=== PATIENT | female | born 1995 | race Caucasian/White ===

== ENCOUNTER 2016-10-12 22:56 | Emergency (ER) | payer BC ==
[2016-10-12] MEDS ORDERED: ONDANSETRON HCL IV 4 MG/2 ML VIAL IV ONE (23:06)
[2016-10-12] MEDS ORDERED: 0.9 % SODIUM CHLORIDE 1,000 ML BAG IV ONE (23:06)
[2016-10-12] MEDS ORDERED: MORPHINE SULFATE 5 MG/ML PFS IVP ONE (23:07)
--- NOTE | 2016-10-12 23:12 | Emergency Department Record ---
History of Present Illness - General Chief Complaint: Abdominal Pain Stated Complaint: ABD PAIN Time Seen by Provider: 10/12/16 23:06 Source: Patient, Family Mode of Arrival: Ambulatory Limitations: No limitations - History of Present Illness Initial Comments: 21 yo female presents with left side pain that started about 1 hour prior to arrival. The pain is lateral to the level of the umbilicus. She has associated nausea. No fever. No lower pelvic pain or back pain. She did have a loose stool. No blood in the urine or stool. No history of prior similar pain. No history of renal stones or ovarian cysts. No history of abdominal surgery. MD Complaint: Abdominal pain, Flank pain Onset/Timin -: Hour(s) Location: LLQ Radiation: None Migration to: No migration Severity: Severe Consistency: Constant Improves With: Nothing Worsens With: Nothing Associated Symptoms: Diarrhea, Nausea - Related Data LMP (females 10-50): 1 month ago Home Medications Medication Instructions Recorded Confirmed Last Taken Norethindrone-Ethinyl Estrad 1 each PO DAILY 03/20/15 03/20/15 Unknown [Necon 1-35-28 Tablet] Previous Rx's Medication Instructions Recorded Sulfamethoxazole/Trimethoprim 1 tab PO BID #20 tab 03/20/15 [Bactrim DS] Hydrocodone/Acetaminophen [Shelburn 1 tab PO Q6H PRN #15 tab 10/13/16 5mg/325mg] Metronidazole [Flagyl] 500 mg PO BID #14 tablet 10/13/16 Tamsulosin HCl [Flomax] 0.4 mg PO DAILY #7 cap.er.24h 10/13/16 Allergies Allergy/AdvReac Type Severity Reaction Status Date / Time No Known Drug Allergies Allergy Verified 03/20/15 13:09 Travel Screening - Travel/Exposure Within Last 30 Days Have you traveled within the last 30 days?: No - Travel/Exposure Within Last Year Have you traveled outside the [place] in the last year?: No - Additonal Travel Details Have you been exposed to anyone with a communicable illness?: No - Travel Symptoms Symptom Screening: None Review of Systems Constitutional: Denies: Chills, Fever, Malaise, Weakness Eyes: Denies: Eye discharge, Photophobia, Vision change ENT: Denies: Congestion, Throat pain Respiratory: Denies: Cough, Dyspnea, Hemoptysis, Stridor, Wheezes Cardiovascular: Denies: Chest pain, Palpitations, Syncope Endocrine: Denies: Fatigue, Polydipsia, Polyuria Gastrointestinal: Reports: As per HPI, Abdominal pain, Diarrhea, Nausea, Vomiting. Denies: Constipation, Hematemesis, Hematochezia Genitourinary: Denies: Abnormal menses, Discharge, Dysuria, Hematuria, Urgency Musculoskeletal: Denies: Arthralgia, Back pain, Joint swelling, Myalgia, Neck pain Skin: Denies: Bruising, Change in color, Rash Neurological: Denies: Confusion, Headache Psychiatric: Denies: Anxiety Hematological/Lymphatic: Denies: Blood Clots, Easy bleeding, Easy bruising, Swollen glands Past Medical History - SOCIAL HISTORY Smoking Status: Never smoker Alcohol Use: Rare Drug Use: None - RESPIRATORY Hx Respiratory Disorders: No - CARDIOVASCULAR Hx Cardio Disorders: No - NEURO Hx Neuro Disorders: No - GI Hx GI Disorders: No - Hx Genitourinary Disorders: No - ENDOCRINE Hx Endocrine Disorders: No - MUSCULOSKELETAL Hx Musculoskeletal Disorders: No - PSYCH Hx Psych Problems: No - HEMATOLOGY/ONCOLOGY Hx Hematology/Oncology Disorders: No Family Medical History Any Significant Family History?: No Physical Exam - General General Appearance: Alert, Oriented x3, Cooperative, No acute distress Limitations: No limitations - Head Head exam: Normal inspection - Eye Eye exam: Normal appearance, PERRL. negative: Conjunctival injection, Periorbital swelling - ENT ENT exam: Normal exam, Mucous membranes moist Ear exam: Normal external inspection Nasal Exam: Normal inspection Mouth exam: Normal external inspection Teeth exam: Normal inspection Throat exam: Normal inspection - Neck Neck exam: Normal inspection, Full ROM. negative: Tenderness - Respiratory Respiratory exam: Normal lung sounds bilaterally. negative: Respiratory distress - Cardiovascular Cardiovascular Exam: Regular rate, Normal rhythm, Normal heart sounds - GI/Abdominal GI/Abdominal exam: Soft, Normal bowel sounds, Tenderness (tender lateral to the umbilical level, not tender lower or above that area. the pelvic area is not tender). negative: Distended, Guarding, Hernia, Mass, Rebound, Rigid - Rectal Rectal exam: Deferred - exam: Normal bimanual exam, Normal external exam, Normal speculum exam, Vaginal bleeding (very slight spotting). negative: Abnormal external exam, Adnexal mass (L), Adnexal mass (R), Adnexal tenderness (L), Adnexal tenderness ( R), Cervical discharge, cervical motion tenderness, Vaginal discharge, Vaginal erythema - Extremities Extremities exam: Normal inspection, Full ROM, Normal capillary refill. negative: Tenderness - Back Back exam: Reports: Normal inspection, Full ROM. Denies: CVA tenderness (R), CVA tenderness (L), Muscle spasm, Paraspinal tenderness, Rash noted, Tenderness , Vertebral tenderness - Neurological Neurological exam: Alert, Normal gait, Oriented X3, Reflexes normal - Psychiatric Psychiatric exam: Normal affect, Normal mood. negative: Agitated, Anxious - Skin Skin exam: Dry, Intact, Normal color, Warm Course Vital Signs 10/12/16 23:02 Temperature 98.2 F Pulse Rate 102 H Respiratory 20 Rate Blood Pressure 142/94 Pulse Ox 100 - Reevaluation(s) Reevaluation #1: No acute changes on the CBC or CMP excpet mild decrease in the Potassium. UA is pending. Her HCG is negative. 10/12/16 23:41 Reevaluation #2: Pelvic Examination completed No significant adnexal tenderness on the left 10/12/16 23:57 Reevaluation #3: Wet Prep with clue cells. 10/13/16 00:23 Reevaluation #4: CT scan demonstrates left hydronephrosis, and left hydroureter due to a 2.7mm renal at the UVJ. Bilateral NO stones largest 4.5mm 10/13/16 00:45 UA is negative for infection The patient's pain is well controlled I discussed renal stones and reasons to return to the ED Given her multiple stones and chance for future stones she will be given a referral to urology as an outpatient She will be given a strainer and specimen cup as well 10/13/16 01:05 Medical Decision Making - Lab Data Result diagrams: 10/12/16 23:10 10/12/16 23:10 Disposition Disposition: Discharge Clinical Impression: Renal colic on left side, Bacterial vaginosis Disposition: Home, Self-Care Condition: (1) Good Instructions: Renal Colic (ED), Bacterial Vaginosis (ED) Additional Instructions: Return to the ER immediately if you have fever, uncontrolled nausea or pain Follow up with the urologist regarding your stones Take the Flagyl twice daily for the bacterial vaginosis Strain your urine to look for a stone Prescriptions: Metronidazole [Flagyl] 500 mg PO BID #14 tablet Tamsulosin HCl [Flomax] 0.4 mg PO DAILY #7 cap.er.24h Hydrocodone/Acetaminophen [Shelburn 5mg/325mg] 1 tab PO Q6H PRN #15 tab PRN Reason: Pain - General Referrals: JAUN DE LOS SANTOS M.D. [MEDICAL DOCTOR] - [facility] [Provider Group] Forms: Patient Portal Access Time of Disposition: 01:07
[2016-10-12 23:18] LABS: BASO % 0.5 % (0-6); EOS % 3.7 % (0-6); GRAN % 53.7 % (47-80); HEMATOCRIT 41.5 % (35.0-47.0); HEMOGLOBIN 13.4 gm/dl (11.6-16.0); LYMPH % 35.6 % (16-45); MEAN CELL VOLUME 84.2 fl (81-97); MEAN CORPUSCULAR HEMOGLOBIN 27.2 pg (27-33); MEAN CORPUSCULAR HGB CONC 32.3 g/dl (32-36); MEAN PLATELET VOLUME 10.3 fl (7.4-10.4); MONO % 6.5 % (0-9); PLATELET COUNT 333 K/uL (130-400); RED BLOOD COUNT 4.93 M/uL (3.80-5.40); RED CELL DISTRIBUTION WIDTH 13.6 % (11.5-14.5); WHITE BLOOD COUNT W/O DIFF 7.5 K/uL (4.2-12.2)
[2016-10-12 23:29] LABS: ALB/GLOB RATIO 1.4 (1.1-1.8); ALBUMIN 4.5 gm/dL (3.5-5.0); ALKALINE PHOSPHATASE 68 U/L (38-126); ALT/SGPT 31 U/L (9-52); ANION GAP 11.6 (7-16); AST/SGOT 32 U/L (14-36); BILIRUBIN,TOTAL 0.73 mg/dL (0.2-1.3); BLOOD UREA NITROGEN 18 mg/dL (7-17); CARBON DIOXIDE 22.4 mmol/L (22-30); CREATININE 0.7 mg/dL (0.52-1.04); EST GLOMERULAR FILTRATION RATE > 60 ml/min; GLUCOSE,RANDOM 103 mg/dL (70-110); LIPASE 128 U/L (23-300); TOTAL PROTEIN 7.8 gm/dL (6.3-8.2)
[2016-10-12] MEDS ORDERED: KETOROLAC 30 MG/ML VIAL IVP ONE (23:42)
[2016-10-13] MEDS ORDERED: TAMSULOSIN HCL 0.4 MG CAP.ER.24H PO ONE (00:48)
[2016-10-13 00:57] LABS: URINE APPEARANCE CLEAR; URINE BILIRUBIN NEGATIVE (NEGATIVE); URINE BLOOD NEGATIVE (NEGATIVE); URINE COLOR YELLOW; URINE GLUCOSE (UA) NEGATIVE (NEGATIVE); URINE KETONE NEGATIVE (NEGATIVE); URINE LEUKOCYTE ESTERASE NEGATIVE (NEGATIVE); URINE NITRITE NEGATIVE (NEGATIVE); URINE PROTEIN NEGATIVE (NEGATIVE); URINE UROBILINOGEN 0.2 E.U./dL (0.20 - 1.00)
[2016-10-13] MEDS ORDERED: HYDROCODONE/APAP 7.5/325MG TABLET PO ONE (01:07)
[2016-10-14 16:35] LABS: GC SPECIMEN TYPE Vaginal
== END 2016-10-13 01:27 | disposition home or self-care (01) ==
LOC: ER 22:56
DX: N13.2 Hydronephrosis with renal and ureteral calculous obstruction (principal); N76.0 Acute vaginitis; R19.7 Diarrhea, unspecified; R11.0 Nausea
CPT/HCPCS: 99284 ×2; 96374; 96375; 96361; 83690; 85025; 80053; 81003; 84703; 74176; Q0111; J1885; J2405; J2270; 87210; J7030

== ENCOUNTER 2016-11-25 02:59 | Emergency (ER) | payer BC ==
[2016-11-25] MEDS ORDERED: 0.9 % SODIUM CHLORIDE 1,000 ML BAG IV ONE (03:14)
[2016-11-25] MEDS ORDERED: ONDANSETRON HCL IV 4 MG/2 ML VIAL IVP ONE (03:15)
--- NOTE | 2016-11-25 03:21 | Emergency Department Record ---
History of Present Illness - General Chief complaint: Flank Pain Stated complaint: FLANK PAIN Time Seen by Provider: 11/25/16 03:13 Source: Patient Mode of Arrival: Ambulatory Limitations: No limitations - History of Present Illness Initial comments: ptc/o r flank pain that feels like previous kidney stone for 5 hrs. pt has nausea. MD Complaint: Other Onset/Timin -: Minutes(s) Radiation: R flank Severity scale (1-10): 9 Quality: Stabbing Consistency: Constant, Getting worse Improves with: None Worsens with: None Patient : No Associated Symptoms: Dysuria - Related Data Allergies Allergy/AdvReac Type Severity Reaction Status Date / Time No Known Drug Allergies Allergy Verified 03/20/15 13:09 Travel Screening - Travel/Exposure Within Last 30 Days Have you traveled within the last 30 days?: No Review of Systems Reviewed: No additional complaints except as noted below Constitutional: Reports: As per HPI. Denies: Chills, Fever, Malaise, Night sweats, Weakness, Weight change Eyes: Reports: As per HPI. Denies: Eye discharge, Eye pain, Photophobia, Vision change ENT: Reports: As per HPI. Denies: Congestion, Dental pain, Ear pain, Epistaxis , Hearing loss, Throat pain Respiratory: Reports: As per HPI. Denies: Cough, Dyspnea, Hemoptysis, Stridor, Wheezes Cardiovascular: Reports: As per HPI. Denies: Arrhythmia, Chest pain, Dyspnea on exertion, Edema, Murmurs, Orthopnea, Palpitations, Paroxysmal nocturnal dyspnea, Rheumatic Fever, Syncope Endocrine: Reports: As per HPI. Denies: Fatigue, Heat or cold intolerance, Polydipsia, Polyuria Gastrointestinal: Reports: As per HPI. Denies: Abdominal pain, Constipation, Diarrhea, Hematemesis, Hematochezia, Melena, Nausea, Vomiting Genitourinary: Reports: As per HPI. Denies: Abnormal menses, Discharge, Dyspareunia, Dysuria, Frequency, Hematuria, Incontinence, Retention, Urgency Musculoskeletal: Reports: As per HPI. Denies: Arthralgia, Back pain, Gout, Joint swelling, Myalgia, Neck pain Skin: Reports: As per HPI. Denies: Bruising, Change in color, Change in hair/ nails, Lesions, Pruritus, Rash Neurological: Reports: As per HPI. Denies: Abnormal gait, Confusion, Headache, Numbness, Paresthesias, Seizure, Tingling, Tremors, Vertigo, Weakness Psychiatric: Reports: As per HPI. Denies: Anxiety, Auditory hallucinations, Depression, Homicidal thoughts, Suicidal thoughts, Visual hallucinations Hematological/Lymphatic: Reports: As per HPI. Denies: Anemia, Blood Clots, Easy bleeding, Easy bruising, Swollen glands Past Medical History - SOCIAL HISTORY Smoking Status: Never smoker Alcohol Use: None Drug Use: None - RESPIRATORY Hx Respiratory Disorders: No - CARDIOVASCULAR Hx Cardio Disorders: No - NEURO Hx Neuro Disorders: No - GI Hx GI Disorders: No - Hx Genitourinary Disorders: No - ENDOCRINE Hx Endocrine Disorders: No - MUSCULOSKELETAL Hx Musculoskeletal Disorders: No - PSYCH Hx Psych Problems: No - HEMATOLOGY/ONCOLOGY Hx Hematology/Oncology Disorders: No Family Medical History Any Significant Family History?: No Physical Exam - General General Appearance: Alert, Oriented x3, Cooperative, Mild distress - Head Head exam: Normal inspection - Eye Eye exam: Normal appearance, PERRL, EOMI Pupils: Normal accommodation - ENT ENT exam: Normal exam, Mucous membranes moist, Normal external ear exam, Normal orophraynx Ear exam: Normal external inspection. negative: External canal tenderness Nasal Exam: Normal inspection. negative: Discharge, Sinus tenderness Mouth exam: Normal external inspection, Tongue normal Teeth exam: Normal inspection. negative: Dental caries Throat exam: Normal inspection. negative: Tonsillar erythema, Tonsillar exudate - Neck Neck exam: Normal inspection, Full ROM. negative: Tenderness - Respiratory Respiratory exam: Normal lung sounds bilaterally. negative: Respiratory distress - Cardiovascular Cardiovascular Exam: Regular rate, Normal rhythm, Normal heart sounds - GI/Abdominal GI/Abdominal exam: Soft, Normal bowel sounds. negative: Tenderness - Rectal Rectal exam: Deferred - exam: Deferred - Extremities Extremities exam: Normal inspection, Full ROM, Normal capillary refill. negative: Tenderness - Back Back exam: Reports: Normal inspection, Full ROM. Denies: Muscle spasm, Rash noted, Tenderness - Neurological Neurological exam: Alert, CN II-XII intact, Normal gait, Oriented X3 - Psychiatric Psychiatric exam: Normal affect, Normal mood - Skin Skin exam: Dry, Intact, Normal color, Warm Course Vital Signs 11/25/16 03:03 Temperature 98 F Pulse Rate [ 77 Pulse Ox Probe] Respiratory 20 Rate Blood Pressure 137/90 [Left Arm] Pulse Ox 100 Medical Decision Making - Lab Data Result diagrams: 11/25/16 03:12 11/25/16 03:12 Disposition Disposition: Transfer Clinical Impression: Renal lithiasis, Pyelonephritis Disposition: Acute Care Hospital Transfer Transfer To: [facility] Reason For Transfer: needs urologist Accepting Physician: brandi newman Time Discussed w/Accepting Physician: 05:21 Forms: Patient Portal Access
[2016-11-25 03:23] LABS: BASO % 0.8 % (0-6); EOS % 2.2 % (0-6); GRAN % 48.3 % (47-80); HEMATOCRIT 42.2 % (35.0-47.0); HEMOGLOBIN 13.3 gm/dl (11.6-16.0); LYMPH % 41.4 % (16-45); MEAN CELL VOLUME 85.6 fl (81-97); MEAN CORPUSCULAR HGB CONC 31.5 g/dl (32-36); MONO % 7.3 % (0-9); PLATELET COUNT 429 K/uL (130-400); RED BLOOD COUNT 4.93 M/uL (3.80-5.40); RED CELL DISTRIBUTION WIDTH 13.7 % (11.5-14.5); WHITE BLOOD COUNT W/O DIFF 7.7 K/uL (4.2-12.2)
[2016-11-25 03:32] LABS: ANION GAP 11.9 (7-16); BLOOD UREA NITROGEN 9 mg/dL (7-17); CARBON DIOXIDE 23.1 mmol/L (22-30); CREATININE 0.7 mg/dL (0.52-1.04); EST GLOMERULAR FILTRATION RATE > 60 ml/min; GLUCOSE,RANDOM 90 mg/dL (70-110)
[2016-11-25 03:40] LABS: HCG,QUALITATIVE URINE NEGATIVE (NEGATIVE); URINE APPEARANCE CLEAR; URINE BILIRUBIN NEGATIVE (NEGATIVE); URINE BLOOD LARGE (NEGATIVE); URINE COLOR YELLOW; URINE GLUCOSE (UA) NEGATIVE (NEGATIVE); URINE KETONE NEGATIVE (NEGATIVE); URINE LEUKOCYTE ESTERASE LARGE (NEGATIVE); URINE NITRITE POSITIVE (NEGATIVE)
[2016-11-25] MEDS ORDERED: KETOROLAC 30 MG/ML VIAL IVP ONE (03:45)
[2016-11-25 03:47] LABS: URINE EPITHELIAL CELLS 21 - 35 (FEW)
[2016-11-25 03:48] LABS: URINE BACTERIA 4+; URINE MUCUS MODERATE
[2016-11-25 04:45] LABS: URINE APPEARANCE CLEAR; URINE BILIRUBIN NEGATIVE (NEGATIVE); URINE BLOOD LARGE (NEGATIVE); URINE COLOR YELLOW; URINE GLUCOSE (UA) NEGATIVE (NEGATIVE); URINE KETONE NEGATIVE (NEGATIVE); URINE LEUKOCYTE ESTERASE MODERATE (NEGATIVE); URINE NITRITE NEGATIVE (NEGATIVE); URINE UROBILINOGEN 0.2 E.U./dL (0.20 - 1.00)
[2016-11-25 04:53] LABS: URINE BACTERIA 4+; URINE MUCUS MODERATE; URINE RBC 21 - 35 (NONE SEEN); URINE WBC 16 - 20 (0-2/hpf)
[2016-11-25] MEDS ORDERED: CIPROFLOXACIN LACTATE/D5W 400 MG/200 ML BAG IVPB ONE (04:59)
--- NOTE | 2016-11-25 09:36 | CT SCAN REPORT ---
EXAM: EMERGENCY CT OF THE ABDOMEN AND PELVIS WITHOUT CONTRAST HISTORY: RIGHT FLANK PAIN. TECHNIQUE: Axial CT scan of the abdomen and pelvis was performed without oral or IV contrast. A preliminary report was provided by [facility]. Comparison: CT of the abdomen and pelvis dated 10/13/16. FINDINGS: Tiny nonobstructing calculus lower pole right kidney, however, there is moderate hydronephrosis on the right and also hydroureter with the dilated right ureter followed down into the pelvis where it leads to an approximately 5 mm calculus at the right UVJ. This calculus appears to correspond to a calculus previously seen in the upper pole of the right kidney back on 10/13/16. Very tiny nonobstructing calculus in the left kidney. No hydronephrosis or hydroureter on the left today with the previously seen left sided hydronephrosis no longer present. The previously seen distal left ureteral calculus no longer evident. No actual bladder calculus evident today. No calcified gallstones are seen within the gallbladder. Evaluation of the bowel and viscera is very limited without oral or IV contrast. Given this limitation, no definite hepatic, splenic, adrenal, pancreatic, or renal mass identified. The appendix is not well seen without contrast, but no definite appendicitis evident. There are some mildly prominent mesenteric nodes in the right lower quadrant, these are nonspecific, but may simply be reactive in nature. The lung bases appear clear. No free intraperitoneal air or free intraperitoneal fluid evident. IMPRESSION: 1. APPEARANCE CONSISTENT WITH A DISTAL RIGHT URETERAL CALCULUS ABOUT 5 MM IN SIZE CAUSING A COMPONENT OF OBSTRUCTION ON THE RIGHT. 2. ADDITIONAL BILATERAL TINY CURRENTLY NONOBSTRUCTING INTRARENAL CALCULI. 3. SOME MILDLY PROMINENT MESENTERIC NODES IN THE RIGHT LOWER QUADRANT ARE NONSPECIFIC, BUT PRESUMABLY JUST REACTIVE IN NATURE. THE APPENDIX IS NOT WELL SEEN, BUT NO APPENDICITIS EVIDENT. JOB NUMBER: [id number] [facility]
== END 2016-11-25 05:35 | disposition short-term general hospital (02) ==
LOC: ER 02:59
DX: N13.6 Pyonephrosis (principal); R11.0 Nausea; R10.31 Right lower quadrant pain; R30.0 Dysuria; Z87.442 Personal history of urinary calculi
CPT/HCPCS: 99282; 96374; 96375; 99285; 85025; 80048; 81001; 81025; 74176; J0744; J1885; J2405; J7030

== ENCOUNTER 2018-11-09 20:37 | Emergency (ER) | payer BC ==
[2018-11-09] MEDS ORDERED: METOCLOPRAMIDE HCL 10 MG/2 ML VIAL IVP ONE (20:45)
[2018-11-09] MEDS ORDERED: 0.9 % SODIUM CHLORIDE 1000ML 1,000 ML IV SCH (20:45)
[2018-11-09] MEDS ORDERED: DIPHENHYDRAMINE HCL 50 MG/ML VIAL IVP ONE (20:45)
--- NOTE | 2018-11-09 20:49 | Emergency Department Record ---
History of Present Illness - General Chief Complaint: Headache Migraine Stated Complaint: PEÑA Time Seen by Provider: 11/09/18 20:45 Source: Patient Mode of Arrival: Ambulatory Limitations: No limitations - History of Present Illness Initial Comments: 23 yo female presents to ED for evaluation of a "migraine headache" that began 3 days ago, reports associated nausea and vomiting symptoms. Patient denies fever or neck stiffness symptoms, denies anticoagulation use. Patient reports that she is approximately 15 weeks , reports she is worried about becoming further dehydrated prompting visit to the ED this evening. MD Complaint: Headache Onset/Timin -: Days(s) Onset Description: Gradual Location: Diffuse Severity: Moderate Quality: Throbbing Consistency: Constant Improves With: Nothing Worsens With: None Associated Symptoms: Nausea, Vomiting - Related Data Home Medications Medication Instructions Recorded Confirmed Last Taken Pnv No.95/Ferrous Fum/Folic AC 1 each PO DAILY 11/09/18 11/09/18 Unknown [ Caplet] Allergies Allergy/AdvReac Type Severity Reaction Status Date / Time No Known Drug Allergies Allergy Verified 03/20/15 13:09 Review of Systems Constitutional: Denies: Chills, Fever, Malaise, Night sweats Eyes: Denies: Eye discharge, Eye pain ENT: Denies: Congestion, Ear pain, Epistaxis Respiratory: Denies: Cough, Dyspnea Cardiovascular: Denies: Chest pain, Dyspnea on exertion Endocrine: Denies: Fatigue, Heat or cold intolerance Gastrointestinal: Reports: Nausea, Vomiting. Denies: Abdominal pain Genitourinary: Denies: Incontinence, Retention Musculoskeletal: Denies: Arthralgia, Back pain Skin: Denies: Bruising, Change in color Neurological: Reports: Headache. Denies: Abnormal gait, Confusion, Seizure Psychiatric: Denies: Anxiety Hematological/Lymphatic: Denies: Anemia, Blood Clots Past Medical History - SOCIAL HISTORY Smoking Status: Never smoker Drug Use: None - RESPIRATORY Hx Respiratory Disorders: No - CARDIOVASCULAR Hx Cardio Disorders: No - NEURO Hx Neuro Disorders: No - GI Hx GI Disorders: No - Hx Genitourinary Disorders: No - ENDOCRINE Hx Endocrine Disorders: No - MUSCULOSKELETAL Hx Musculoskeletal Disorders: No - PSYCH Hx Psych Problems: No - HEMATOLOGY/ONCOLOGY Hx Hematology/Oncology Disorders: No Physical Exam - General General Appearance: Alert, Oriented x3, Cooperative, Mild distress Limitations: No limitations - Head Head exam: Atraumatic, Normocephalic, Normal inspection Head exam detail: negative: Abrasion, Contusion, Her's sign, General tenderness, Hematoma, Laceration - Eye Eye exam: Normal appearance. negative: Conjunctival injection, Periorbital swelling, Periorbital tenderness, Scleral icterus - ENT Ear exam: negative: Auricular hematoma, Auricular trauma Nasal Exam: negative: Active bleeding, Discharge, Dried blood, Foreign body Mouth exam: negative: Drooling, Laceration, Muffled voice, Tongue elevation - Neck Neck exam: Normal inspection. negative: Meningismus, Tenderness - Respiratory Respiratory exam: Normal lung sounds bilaterally. negative: Rales, Respiratory distress, Rhonchi, Stridor - Cardiovascular Cardiovascular Exam: Regular rate, Normal rhythm, Normal heart sounds - GI/Abdominal GI/Abdominal exam: Soft. negative: Rebound, Rigid, Tenderness - Rectal Rectal exam: Deferred - exam: Deferred - Extremities Extremities exam: Normal inspection. negative: Pedal edema, Tenderness - Back Back exam: Denies: CVA tenderness (R), CVA tenderness (L) - Neurological Neurological exam: Alert, Normal gait, Oriented X3 - Psychiatric Psychiatric exam: Normal affect, Normal mood - Skin Skin exam: Normal color. negative: Abrasion Type of lesion: negative: abrasion Course Vital Signs 11/09/18 20:43 Temperature 98.2 F Pulse Rate [ 87 Left] Respiratory 16 Rate Blood Pressure 126/91 [Left Arm] Pulse Ox 99 - Reevaluation(s) Reevaluation #1: 11/09/18 21:45 Patient was reassessed, reports that her headache symptoms are improved to 2/10. Patient appears stable for discharge at this time. Disposition Disposition: Discharge Clinical Impression: Acute headache Qualifiers: Headache type: unspecified Intractability: not intractable Qualified Code(s): R51 - Headache Disposition: Home, Self-Care Condition: (2) Stable Instructions: Acute Headache (ED) Additional Instructions: Return to ED if your symptoms worsen or if you have any concerns. Follow-up with your family doctor in 3-5 days as directed. Forms: Patient Portal Access Time of Disposition: 21:45 Quality - Quality Measures Quality Measures: N/A - Blood Pressure Screening Does Patient Have Any of the Following: No Blood Pressure Classification: Hypertensive Reading Systolic Measurement: 126 Diastolic Measurement: 91 Screening for High Blood Pressure: < First Hypertensive BP, F/U Documented > [G8950] First Hypertensive Follow-up Interventions: Referral to alternative/primary care provider.
== END 2018-11-09 22:01 | disposition home or self-care (01) ==
LOC: ER 20:37
DX: R51 Headache (principal); R11.2 Nausea with vomiting, unspecified; Z33.1 Pregnant state, incidental
CPT/HCPCS: 96361; 96374; 96375; 99284; J1200; J2765; J7030

== ENCOUNTER 2018-12-03 18:05 | Emergency (ER) | payer BC ==
--- NOTE | 2018-12-03 18:17 | Emergency Department Record ---
History of Present Illness - General Chief Complaint: Chest Pain Stated Complaint: LT ARM CHEST PAIN Time Seen by Provider: 12/03/18 18:06 Source: Patient Mode of Arrival: Ambulatory Limitations: No limitations - History of Present Illness Initial Comments: 23 yo female presents to ED for evaluation of left upper arm pain and chest "pressure" in the mid-sternum that began last night, has been present for approximately 24 hours. Patient reports that her symptoms began with the arm pain, developed symptoms of chest pressure this afternoon. Patient reports that she is approximately 18 weeks , denies previous DVT/PE, heart, or lung problems. Patient denies fevers, chills, or recent illness. Patient denies health problems at her baseline. MD Complaint: Chest pain Onset/Timin -: Days(s) Pain Location: Substernal Pain Radiation: None Severity: Moderate Quality: Heaviness Consistency: Constant Improves With: Nothing Worsens With: Nothing Treatments Prior to Arrival: None - Related Data On Oral Contraceptives: No Allergies Allergy/AdvReac Type Severity Reaction Status Date / Time No Known Drug Allergies Allergy Verified 12/03/18 18:14 Review of Systems Constitutional: Denies: Chills, Fever, Malaise, Night sweats Eyes: Denies: Eye discharge, Eye pain ENT: Denies: Congestion, Ear pain, Epistaxis Respiratory: Denies: Cough, Dyspnea Cardiovascular: Reports: Chest pain. Denies: Dyspnea on exertion Endocrine: Denies: Fatigue, Heat or cold intolerance Gastrointestinal: Denies: Abdominal pain, Nausea, Vomiting Genitourinary: Denies: Incontinence, Retention Musculoskeletal: Denies: Arthralgia, Back pain Skin: Denies: Bruising, Change in color Neurological: Denies: Abnormal gait, Confusion, Headache Psychiatric: Denies: Anxiety Hematological/Lymphatic: Denies: Anemia, Blood Clots Past Medical History - SOCIAL HISTORY Smoking Status: Never smoker Drug Use: None - RESPIRATORY Hx Respiratory Disorders: No - CARDIOVASCULAR Hx Cardio Disorders: No - NEURO Hx Neuro Disorders: No - GI Hx GI Disorders: No - Hx Genitourinary Disorders: No - ENDOCRINE Hx Endocrine Disorders: No - MUSCULOSKELETAL Hx Musculoskeletal Disorders: No - PSYCH Hx Psych Problems: No - HEMATOLOGY/ONCOLOGY Hx Hematology/Oncology Disorders: No Physical Exam - General General Appearance: Alert, Oriented x3, Cooperative, No acute distress Limitations: No limitations - Head Head exam: Atraumatic, Normocephalic, Normal inspection Head exam detail: negative: Abrasion, Contusion, Her's sign, General tenderness, Hematoma, Laceration - Eye Eye exam: Normal appearance. negative: Conjunctival injection, Periorbital swelling, Periorbital tenderness, Scleral icterus - ENT Ear exam: negative: Auricular hematoma, Auricular trauma Nasal Exam: negative: Active bleeding, Discharge, Dried blood, Foreign body Mouth exam: negative: Drooling, Laceration, Muffled voice, Tongue elevation - Neck Neck exam: Normal inspection. negative: Meningismus, Tenderness - Respiratory Respiratory exam: Normal lung sounds bilaterally. negative: Respiratory distress, Rhonchi, Stridor, Wheezes - Cardiovascular Cardiovascular Exam: Regular rate, Normal rhythm, Normal heart sounds - GI/Abdominal GI/Abdominal exam: Soft. negative: Rebound, Rigid, Tenderness - Rectal Rectal exam: Deferred - exam: Deferred - Extremities Extremities exam: Normal inspection. negative: Calf tenderness, Pedal edema, Tenderness - Back Back exam: Denies: CVA tenderness (R), CVA tenderness (L) - Neurological Neurological exam: Alert, Normal gait, Oriented X3 - Psychiatric Psychiatric exam: Normal affect, Normal mood - Skin Skin exam: Normal color. negative: Abrasion Type of lesion: negative: abrasion Course Vital Signs 12/03/18 18:09 Temperature 97.3 F L Pulse Rate 108 H Respiratory 20 Rate Blood Pressure 141/84 Pulse Ox 99 - Reevaluation(s) Reevaluation #1: 12/03/18 18:21 EKG: NSR 91 Normal axis, normal intervals No acute ST-T wave changes Due to current at 18 weeks gestation, risk for DVT/PE is somewhat higher. Following discussion with the patient and her SO re: the risk of radiation exposure for CT in , patient would like to exclude PE as a cause of her symptoms. D-Dimer ordered following out discussion. Reevaluation #2: 12/03/18 19:06 Laboratory studies were reviewed, D-Dimer is 0.97. Labs appear otherwise grossly unremarkable for an acute process. Discussed risks/benefits of performing CT imaging again with the patient, kiana bell would like to proceed following our discussion. Reevaluation #3: 12/03/18 19:50 CTA Chest: No acute process Patient was updated on all results, resting comfortably. Pulse <100, appears stable for discharge at this time. Medical Decision Making - Lab Data Result diagrams: 12/03/18 18:20 12/03/18 18:20 Disposition Disposition: Discharge Clinical Impression: Atypical chest pain Disposition: Home, Self-Care Condition: (2) Stable Instructions: Chest Pain (ED) Additional Instructions: Return to ED if your symptoms worsen or if you have any concerns. Follow-up with your family doctor/OB in 3-5 days as directed. Forms: Patient Portal Access Time of Disposition: 19:50 Quality - Quality Measures Quality Measures: N/A - Blood Pressure Screening Does Patient Have Any of the Following: No Blood Pressure Classification: Pre-Hypertensive BP Reading Systolic Measurement: 141 Diastolic Measurement: 84 Screening for High Blood Pressure: < Pre-Hypertensive BP, F/U Documented > [G8950] Pre-Hypertensive Follow-up Interventions: Referral to alternative/primary care provider.
[2018-12-03 18:32] LABS: ABSOLUTE NEUTROPHIL COUNT 5.42; BASO % 0.3 % (0-6); EOS % 2.1 % (0-6); GRAN % 69.6 % (47-80); HEMATOCRIT 39.1 % (35.0-47.0); HEMOGLOBIN 13.1 gm/dl (11.6-16.0); LYMPH % 22.1 % (16-45); MEAN CELL VOLUME 85.2 fl (81-97); MEAN CORPUSCULAR HEMOGLOBIN 28.5 pg (27-33); MEAN CORPUSCULAR HGB CONC 33.5 g/dl (32-36); MEAN PLATELET VOLUME 10.2 fl (7.4-10.4); MONO % 5.9 % (0-9); PLATELET COUNT 256 K/uL (130-400); RED BLOOD COUNT 4.59 M/uL (3.80-5.40); RED CELL DISTRIBUTION WIDTH 14.5 % (11.5-14.5); WHITE BLOOD COUNT W/O DIFF 7.8 K/uL (4.2-12.2)
[2018-12-03 18:58] LABS: BLOOD UREA NITROGEN 6 mg/dL (6-20); CREATININE 0.5 mg/dL (0.5-0.9); EST GLOMERULAR FILTRATION RATE > 60 mL/min; TOTAL PROTEIN 6.9 g/dL (6.6-8.7)
[2018-12-03 19:00] LABS: GLUCOSE,RANDOM 86 mg/dL (74-109)
[2018-12-03 19:03] LABS: ALB/GLOB RATIO 1.2 (1.1-1.8); ALBUMIN 3.8 g/dL (4.0-5.0); ALKALINE PHOSPHATASE 52 U/L (35-104); ALT/SGPT 9 U/L (<33); AST/SGOT 16 U/L (10.0-35.0)
--- NOTE | 2018-12-04 21:39 | CT ANGIOGRAM REPORT ---
EXAM: CT ANGIOGRAM CHEST CTA w contrast HISTORY: CHEST PAIN. COMPARISON: None. TECHNIQUE: Routine CT angiography images of the chest were obtained following intravenous administration of contrast. Amount and type of contrast in the medical record. 3D/MIP images were obtained for further assessment. FINDINGS: The heart is not enlarged. No pericardial effusion. The aorta enhances normally with contrast. There are no central filling defects in the pulmonary arteries to suggest acute PE. No mediastinal or hilar lymph node enlargement. Lungs are without focal consolidation, pleural effusion, or pneumothorax. Visualized upper abdomen demonstrates right intrarenal calculi. Left renal cortical thinning. No acute osseous abnormality. IMPRESSION: 1. NO ACUTE INTRATHORACIC ABNORMALITY. SPECIFICALLY, NO EVIDENCE FOR PE. 2. INCIDENTAL NOTE IS MADE OF LEFT INTRARENAL CALCULI. THERE IS RIGHT RENAL CORTICAL THINNING. JOB NUMBER: [id number] [facility]
== END 2018-12-03 19:54 | disposition home or self-care (01) ==
LOC: ER 18:05
DX: R07.89 Other chest pain (principal); R79.89 Other specified abnormal findings of blood chemistry; R42 Dizziness and giddiness; R06.02 Shortness of breath; Z33.1 Pregnant state, incidental
CPT/HCPCS: 71275; 80053; 85025; 85379; 93005; 93010; 99284

== ENCOUNTER 2019-06-09 03:48 | Emergency (ER) | payer BC ==
[2019-06-09 04:03] LABS: URINE APPEARANCE CLEAR; URINE BILIRUBIN NEGATIVE (NEGATIVE); URINE BLOOD LARGE (NEGATIVE); URINE COLOR YELLOW; URINE GLUCOSE (UA) NEGATIVE (NEGATIVE); URINE KETONE NEGATIVE (NEGATIVE); URINE LEUKOCYTE ESTERASE SMALL (NEGATIVE); URINE NITRITE NEGATIVE (NEGATIVE); URINE PROTEIN NEGATIVE (NEGATIVE); URINE UROBILINOGEN 0.2 E.U./dL (0.20 - 1.00)
[2019-06-09] MEDS ORDERED: 0.9 % SODIUM CHLORIDE 1,000 ML BAG IV ONE ×2 (04:12→05:55)
[2019-06-09 04:14] LABS: URINE BACTERIA FEW; URINE MUCUS MODERATE; URINE RBC 16 - 25 (NONE SEEN)
[2019-06-09] MEDS ORDERED: KETOROLAC 30 MG/ML VIAL IVP ONE (04:21)
[2019-06-09] MEDS ORDERED: ONDANSETRON HCL IV 4 MG/2 ML VIAL IVP ONE (04:21)
--- NOTE | 2019-06-09 04:24 | Emergency Department Record ---
History of Present Illness - General Chief complaint: Flank Pain Stated complaint: LEFT FLANK PAIN Time Seen by Provider: 06/09/19 04:15 Source: Patient Mode of Arrival: Ambulatory - History of Present Illness Initial comments: The patient is nursing her 5 week old baby which she vaginally delivered 5 weeks ago. She was awakened around 0230 with severe left flank pain radiating into her LLQ. associated with nausea, no vomiting. She has a history of kidney stones and renal stents in the past. She was told that she has kidneys full of kidney stones. She denies fevers, but feels chilly. MD Complaint: Other (left flank pain) Onset/Timin -: Hour(s) Radiation: LLQ Severity: Moderate Severity scale (1-10): 7 Quality: Aching, Sharp Consistency: Constant, Getting worse Improves with: None Worsens with: None Associated Symptoms: Denies other symptoms, Abdominal pain, Dysuria - Related Data Home Medications Medication Instructions Recorded Confirmed Last Taken No Home Med [NO HOME MEDS] 06/09/19 06/09/19 Unknown Allergies Allergy/AdvReac Type Severity Reaction Status Date / Time No Known Drug Allergies Allergy Verified 06/09/19 03:59 Travel Screening - Travel/Exposure Within Last 30 Days Have you traveled within the last 30 days?: No - Travel/Exposure Within Last Year Have you traveled outside the [place] in the last year?: No - Additonal Travel Details Have you been exposed to anyone with a communicable illness?: No - Travel Symptoms Symptom Screening: None Review of Systems Reviewed: No additional complaints except as noted below Constitutional: Reports: As per HPI. Denies: Chills, Fever, Malaise, Night sweats, Weakness, Weight change Eyes: Reports: As per HPI. Denies: Eye discharge, Eye pain, Photophobia, Vision change ENT: Reports: As per HPI. Denies: Congestion, Dental pain, Ear pain, Epistaxis, Hearing loss, Throat pain Respiratory: Reports: As per HPI. Denies: Cough, Dyspnea, Hemoptysis, Stridor, Wheezes Cardiovascular: Reports: As per HPI. Denies: Arrhythmia, Chest pain, Dyspnea on exertion, Edema, Murmurs, Orthopnea, Palpitations, Paroxysmal nocturnal dyspnea, Rheumatic Fever, Syncope Endocrine: Reports: As per HPI. Denies: Fatigue, Heat or cold intolerance, Polydipsia, Polyuria Gastrointestinal: Reports: As per HPI. Denies: Abdominal pain, Constipation, Diarrhea, Hematemesis, Hematochezia, Melena, Nausea, Vomiting Genitourinary: Reports: As per HPI. Denies: Abnormal menses, Discharge, Dyspareunia, Dysuria, Frequency, Hematuria, Incontinence, Retention, Urgency Musculoskeletal: Reports: As per HPI. Denies: Arthralgia, Back pain, Gout, Joint swelling, Myalgia, Neck pain Skin: Reports: As per HPI. Denies: Bruising, Change in color, Change in hair/nails, Lesions, Pruritus, Rash Neurological: Reports: As per HPI. Denies: Abnormal gait, Confusion, Headache, Numbness, Paresthesias, Seizure, Tingling, Tremors, Vertigo, Weakness Psychiatric: Reports: As per HPI. Denies: Anxiety, Auditory hallucinations, Depression, Homicidal thoughts, Suicidal thoughts, Visual hallucinations Hematological/Lymphatic: Reports: As per HPI. Denies: Anemia, Blood Clots, Easy bleeding, Easy bruising, Swollen glands Past Medical History - SOCIAL HISTORY Smoking Status: Never smoker Alcohol Use: Occasional Drug Use: None - RESPIRATORY Hx Respiratory Disorders: No - CARDIOVASCULAR Hx Cardio Disorders: No - NEURO Hx Neuro Disorders: No - GI Hx GI Disorders: No - Hx Genitourinary Disorders: Yes Hx Kidney Stones: Yes - ENDOCRINE Hx Endocrine Disorders: No - MUSCULOSKELETAL Hx Musculoskeletal Disorders: No - PSYCH Hx Psych Problems: No - HEMATOLOGY/ONCOLOGY Hx Hematology/Oncology Disorders: No Family Medical History Any Significant Family History?: No Physical Exam - General General Appearance: Alert, Oriented x3, Cooperative, Moderate distress - Head Head exam: Normal inspection - Eye Eye exam: Normal appearance, PERRL, EOMI. negative: Conjunctival injection, Nystagmus Pupils: Normal accommodation - ENT ENT exam: Normal exam, Mucous membranes moist, Normal external ear exam, Normal orophraynx, TM's normal bilaterally Ear exam: Normal external inspection. negative: External canal tenderness Nasal Exam: Normal inspection. negative: Discharge, Sinus tenderness Mouth exam: Normal external inspection, Tongue normal Teeth exam: Normal inspection. negative: Dental caries Throat exam: Normal inspection. negative: Tonsillar erythema, Tonsillar exudate - Neck Neck exam: Normal inspection, Full ROM. negative: Lymphadenopathy, Meningismus, Tenderness - Respiratory Respiratory exam: Normal lung sounds bilaterally. negative: Respiratory distress - Cardiovascular Cardiovascular Exam: Normal rhythm, Normal heart sounds, Tachycardia - GI/Abdominal GI/Abdominal exam: Soft, Tenderness (left sided tenderness on palpation) - Rectal Rectal exam: Deferred - exam: Deferred - Extremities Extremities exam: Normal inspection, Full ROM, Normal capillary refill. negative: Calf tenderness, Pedal edema, Tenderness - Back Back exam: Reports: Normal inspection, CVA tenderness (L), Full ROM. Denies: CVA tenderness (R), Muscle spasm, Rash noted, Tenderness - Neurological Neurological exam: Alert, CN II-XII intact, Normal gait, Oriented X3, Reflexes normal. negative: Motor sensory deficit - Psychiatric Psychiatric exam: Normal affect, Normal mood - Skin Skin exam: Dry, Intact, Normal color, Warm Course Vital Signs 06/09/19 04:01 Temperature 98.9 F Pulse Rate [ 105 H Left] Respiratory 16 Rate Blood Pressure 124/83 [Left Arm] Pulse Ox 99 - Reevaluation(s) Reevaluation #1: Patient is much more comfortable after toradol and zofran. Her prior kidney stones needed to be surgically removed because she was unable to pass a 4 mm stone. She needed a renal stent at that time. 06/09/19 05:34 Reevaluation #2: Patient was informed of her results, all questions answered; she is in agreement with transfer to [facility] urology . She is NPO. 06/09/19 05:44 Reevaluation #3: Discussed case with Dr. Aguilera urologist who accepts patient in transfer to [facility]. 06/09/19 05:46 Medical Decision Making - Management Options MDM Management: Additional Work-up Planned (e.g. ADM/Transfer/OP Study) (Transfer to Nephrology [facility] for stone removal) - Data Complexity MDM Data: Labs Ordered and/or Reviewed (UA:RBC 15-26, WBC 10-15, epi 7-10. bacteria: few. small LE, large blood ), X-Ray Ordered and/or Reviewed (CT Abd/pe lvis: 5 mm obstruicting stone at UVJ with left hydronephrosis. There is an additional 5 mm stone in he left kidney. Per radiologist. ) - Lab Data Result diagrams: 06/09/19 04:10 06/09/19 04:10 Lab Results 06/09/19 Range/Units 03:50 Urine Color Yellow Urine Appearance Clear Urine pH 6.0 (5.0-8.0) Ur Specific [place] 1.025 (1.002-1.030) Urine Protein Negative (NEGATIVE) Urine Glucose (UA) Negative (NEGATIVE) Urine Ketones Negative (NEGATIVE) Urine Blood Large H (NEGATIVE) Urine Nitrite Negative (NEGATIVE) Urine Bilirubin Negative (NEGATIVE) Urine Urobilinogen 0.2 (0.20 - 1.00) E.U./dL Ur Leukocyte Esterase Small H (NEGATIVE) Urine RBC 16 - 25 (NONE SEEN) Urine WBC 10 - 15 (0-2/hpf) Ur Epithelial Cells 7 - 10 (FEW) Urine Bacteria Few Urine Mucus Moderate Disposition Disposition: Transfer Clinical Impression: Kidney stone on left side Disposition: Acute Care Hospital Transfer Decision to Admit: Admit from ER Decision to Admit Date: 06/09/19 Decision to Admit Time: 05:43 Transfer To: [facility] Main Reason For Transfer: Kidney stone removal Accepting Physician: Dr. Aguilera Time Discussed w/Accepting Physician: 05:43 Condition: (2) Stable Quality - Quality Measures Quality Measures: N/A - Blood Pressure Screening Does Patient Have Any of the Following: No Blood Pressure Classification: Pre-Hypertensive BP Reading Systolic Measurement: 124 Diastolic Measurement: 83 Screening for High Blood Pressure: < Normal BP, F/U Not Required > [G8783]
[2019-06-09 04:31] LABS: ABSOLUTE NEUTROPHIL COUNT 2.53; BASO % 0.3 % (0-6); EOS % 2.3 % (0-6); GRAN % 65.4 % (47-80); HEMATOCRIT 45.5 % (35.0-47.0); HEMOGLOBIN 14.4 gm/dl (11.6-16.0); LYMPH % 22.7 % (16-45); MEAN CORPUSCULAR HEMOGLOBIN 27.5 pg (27-33); MEAN CORPUSCULAR HGB CONC 31.6 g/dl (32-36); MEAN PLATELET VOLUME 10.6 fl (7.4-10.4); MONO % 9.3 % (0-9); PLATELET COUNT 192 K/uL (130-400); RED BLOOD COUNT 5.23 M/uL (3.80-5.40); RED CELL DISTRIBUTION WIDTH 14.2 % (11.5-14.5); WHITE BLOOD COUNT W/O DIFF 3.9 K/uL (4.2-12.2)
--- NOTE | 2019-06-09 05:14 | CT SCAN REPORT ---
EXAMINATION: CT Abdomen and Pelvis without IV Contrast EXAM DATE: 06/09/2019 5:06 AM TECHNIQUE: Standard protocol CT imaging of the abdomen and pelvis was performed without intravenous c ontrast. INDICATION: left flank pain Hx kidney stones COMPARISON: None ENCOUNTER: Not applicable CT ABDOMEN AND PELVIS FINDINGS: Lung Bases: Included extent of the lung bases are clear. Hepatobiliary: The liver has a normal size with a smooth surface. Pancreas: The pancreas is normal. Spleen: The spleen is not enlarged. Adrenals: The adrenal glands are normal. Kidneys, Ureters, & Bladder: Both kidneys have a normal size and morphology. 5 mm obstructing calculu s at the left ureterovesicular junction. Mild left hydronephrosis. Additional 5 mm calculus in the le ft kidney. Gastrointestinal: The stomach and small bowel are normal with no obstruction or inflammation. The lar ge bowel is within normal limits. Reproductive Organs: Unremarkable Lymphatic System: There is no adenopathy within the abdomen or pelvis. Vasculature: Normal caliber abdominal aorta Peritoneum: No free fluid, free air, or inflammation Abdominal wall & Musculoskeletal: No suspicious bone lesions. Assessment of the solid organs, soft tissues, and vascular structures is overall limited on noncontra st imaging, IMPRESSION: 5 mm obstructing calculus at the left ureterovesicular junction. This produces mild left hydronephros is. Additional 5 mm calculus in left kidney. Dictated by: Crystal Reddy DO on 06/09/2019 5:10 AM. .
[2019-06-09 05:19] LABS: BLOOD UREA NITROGEN 11 mg/dL (6-20); CREATININE 0.7 mg/dL (0.5-0.9); EST GLOMERULAR FILTRATION RATE > 60 mL/min
[2019-06-09 05:22] LABS: GLUCOSE,RANDOM 98 mg/dL (74-109)
== END 2019-06-09 06:40 | disposition short-term general hospital (02) ==
LOC: ER 03:48
DX: O99.89 Other specified diseases and conditions complicating pregnancy, childbirth and the puerperium (principal); N13.2 Hydronephrosis with renal and ureteral calculous obstruction; R11.0 Nausea; Z87.442 Personal history of urinary calculi; R30.0 Dysuria
CPT/HCPCS: 99285 ×2; 96374; 96375; 96361; 85025; 80048; 81001; 74176; J1885; J2405; J7030